=== PATIENT | female | born 1995 | race Caucasian/White ===

== ENCOUNTER → 2018-03-25 14:33 | Outpatient (CLI) | payer OTHER, MEDICAID, SELFPAY ==
[2018-03-25 15:31] LABS: Add Manual Diff / Slide Review NO; Basophils Percent Auto 0.5 % (0-2); Hematocrit 37.1 % (36-46); Hemoglobin 12.8 g/dL (12.0-16.0); Lymphocytes Percent Auto 17.5 % (25-40); Mean Corpuscular HGB Conc 34.5 % (30-36); Mean Corpuscular Hemoglobin 32.1 PG (26-34); Mean Corpuscular Volume 93.2 fL (80-100); Monocytes Percent Auto 5.8 % (3-14); Neutrophils Absolute Auto 7700 /uL (3000-5900); Neutrophils Percent Auto 75.2 % (50-75); Platelet Count 245 X10^3/uL (150-400); Red Blood Cell Count 3.98 X10^6/uL (4.0-5.2); Red Cell Distribution Width 13.2 % (11.6-14.8); White Blood Cell Count 10.2 X10^3/uL (4.5-11.0)
== END ==
PROVIDERS: PCP Physician Assistant; Visit Provider Family Medicine
DX: Z34.83 Encounter for supervision of other normal pregnancy, third trimester (principal)
CPT/HCPCS: 36415; 85025; 86900; 86901

== ENCOUNTER → 2018-04-06 14:12 | Outpatient (CLI) | payer OTHER, MEDICAID, SELFPAY ==
--- NOTE | 2018-04-06 14:14 | DI.US.S_ITS ---
PROCEDURE: US OB FOLLOW UP INDICATIONS: FACIAL FEATURES OUTSIDE/PRIOR DATING DATA: Last menstrual period (LMP): Not available. LMP-based estimated date of delivery (ADRIANNE): Not available. First dating scan (date and location): This study. Estimated date of delivery (ADRIANNE) from first dating scan: 06/15/18, + or -2 weeks. TECHNIQUE: Real-time scanning was performed of the fetus, with image documentation. Endovaginal scanning: No COMPARISON: [facility], , OB COMPLETE 14WKS OR MORE, 01/25/2018, 13:16. FINDINGS: A single living intrauterine gestation is present. Presentation: Vertex. Placenta: Placental position is anterior, without previa. Amniotic fluid index: 13.8 cm, normal range is 5-24 cm. heart rate: 140 beats per minute. Maternal cervical canal: 4.0 cm long. Normal lower limit is 2.5 cm. Estimated gestational age from initial scan: 20 weeks 0 days Normal appearance of the face, profile and nose and lips.. IMPRESSION: Normal appearance of the face. Dictated by: Kj Aponte [facility] Interpreted: Michael Galindo MD on 04/06/2018 at 15:27 Approved by: Michael Galindo M.D. on 04/06/2018 at 21:40
== END ==
PROVIDERS: Family Provider Physician Assistant; PCP Physician Assistant; Visit Provider Family Medicine
DX: Z34.92 Encounter for supervision of normal pregnancy, unspecified, second trimester (principal); Z3A.20 20 weeks gestation of pregnancy
CPT/HCPCS: 76816

== ENCOUNTER → 2018-04-13 16:32 | Outpatient (CLI) | payer OTHER, MEDICAID, SELFPAY ==
[2018-04-13 20:01] LABS: GTT (PREG) 1 Hour PP 50gm Dose 107 mg/dL (76-139)
== END ==
PROVIDERS: Family Provider Physician Assistant; PCP Physician Assistant; Visit Provider Family Medicine
DX: Z34.83 Encounter for supervision of other normal pregnancy, third trimester (principal)
CPT/HCPCS: 36415; 82950

== ENCOUNTER → 2018-05-19 10:05 | Outpatient (CLI) | payer OTHER, MEDICAID, SELFPAY ==
[2018-05-20 14:14] LABS: Strep Grp B PCR POS for Grp B Strep
== END ==
PROVIDERS: Family Provider Physician Assistant; PCP Physician Assistant; Visit Provider Family Medicine
DX: Z3A.36 36 weeks gestation of pregnancy (principal)
CPT/HCPCS: 87653

== ENCOUNTER 2018-06-16 22:53 | Inpatient (IN) | payer OTHER, MEDICAID, SELFPAY ==
[2018-06-17] MEDS: PENICILLIN G POTASSIUM 5,000,000 UNIT in DEXTROSE 5% IN WATER 250 ML IV (00:35)
[2018-06-17] MEDS: LACTATED RINGERS 1,000 ML 100 ML IV ×2 (00:35→01:42)
[2018-06-17 00:42] LABS: Add Manual Diff / Slide Review NO; Basophils Percent Auto 0.5 % (0-2); Eosinophils Percent Auto 0.9 % (2-4); Hematocrit 38.9 % (36-46); Lymphocytes Percent Auto 11.8 % (25-40); Mean Corpuscular HGB Conc 33.5 % (30-36); Mean Corpuscular Hemoglobin 30.7 PG (26-34); Mean Corpuscular Volume 91.7 fL (80-100); Monocytes Percent Auto 5.1 % (3-14); Neutrophils Absolute Auto 11000 /uL (3000-5900); Neutrophils Percent Auto 81.7 % (50-75); Platelet Count 246 X10^3/uL (150-400); Red Blood Cell Count 4.24 X10^6/uL (4.0-5.2); Red Cell Distribution Width 13.8 % (11.6-14.8); White Blood Cell Count 13.4 X10^3/uL (4.5-11.0)
[2018-06-17 02:12] VITALS: BP 122/77
[2018-06-17] MEDS: PENICILLIN G POTASSIUM 3,000,000 UNIT/50 ML FROZ.PIGGY 100 UNIT IV (04:56)
--- NOTE | 2018-06-17 05:50 | PM.OBHP.1 ---
OB HPI Date/Time Date of admission: 06/17/18 Date Patient Seen: 06/17/18 Time Patient Seen: 05:00 History of Present Illness Chief complaint: OBSERVATION OF LABOR : 2 Para: 1 Estimated Date of Delivery: 06/16/18 Estimated Gestational Age (weeks): 40w1d Narrative: Maricel TREJO is a 22 year old at 40w1d who presented in active labor. She reports having painful contractions starting at 7am on 06/16, increasing in frequency and intensity throughout the day. Now feeling them every 5 minutes. No LOF, significant vaginal bleeding. Feeling baby move regularly. History of Present care: good care Dating criteria: based on 1st trimester US only Ultrasounds: normal mid trimester US Obstetrical complications: none Medical complications: none Preadmission Labs Blood type: A (-) negative -: Antibody screen: negative, GBS status: positive, HBsAG: negative and HIV: negative -: Chlamydia screen: not detected and Gonorrhea screen: not detected -: Rubella: immune HCT: 40 1 hr GTT: 107 Prior (ies) History: 04/08/16 - at 39wks, [id number] Evaluation Evaluation Baseline heart rate: 130 Variability: Moderate (11-25) monitor accelerations: Present monitor decelerations: Absent Contraction Frequency (minutes): 3 Uterine Contraction Intensity: Strong/Firm Category of Tracing: I Cervical dilation (cm): 10 Cervical effacement (%): 100 station: +2 Laboratory results: Laboratory Tests 06/17/18 06/17/18 00:35 00:35 WBC 13.4 H RBC 4.24 Hgb 13.0 Hct 38.9 MCV 91.7 MCH 30.7 MCHC 33.5 RDW 13.8 Plt Count 246 Neut % (Auto) 81.7 H Lymph % (Auto) 11.8 L [place] % (Auto) 5.1 Eos % (Auto) 0.9 L Baso % (Auto) 0.5 Neut # (Auto) 24754 H Blood Type A Negative Antibody Screen Negative PFSH Family History Father Heart disease Social History Smoking Status: Never smoker Meds Home Medications Medication Instructions Recorded Confirmed Type No Known Home Medications 06/17/18 06/17/18 History Allergies Allergy/AdvReac Type Severity Reaction Status Date / Time No Known Drug Allergies Allergy Verified 06/17/18 00:56 Review of Systems Review of Systems All systems reviewed & are unremarkable except as noted in HPI and below Exam Vital Signs (past 8 hours): - 06/17/18 02:12 Blood Pressure 122/77 H Const General: cooperative, healthy appearing, comfortable and well developed Nutritional Appearance: average body habitus Resp Auscultation: clear to auscultation bilaterally Cardio Rate: regular rate Rhythm: regular rhythm Heart Sounds: no murmurs GI Inspection: non-distended Palpation: soft and No tender Auscultation: normal bowel sounds Objective Labs Result Diagrams: 06/17/18 00:35 Labs: Laboratory Results - last 24 hr 06/17/18 06/17/18 00:35 00:35 WBC 13.4 H RBC 4.24 Hgb 13.0 Hct 38.9 MCV 91.7 MCH 30.7 MCHC 33.5 RDW 13.8 Plt Count 246 Neut % (Auto) 81.7 H Lymph % (Auto) 11.8 L [place] % (Auto) 5.1 Eos % (Auto) 0.9 L Baso % (Auto) 0.5 Neut # (Auto) 41676 H Blood Type A Negative Antibody Screen Negative Assessment and Plan (1) Active labor at term: Current visit: Yes Status: Acute (2) 40 weeks gestation of : Current visit: Yes Status: Acute 22yo at 40w1d presented in active labor. Uncomplicated . GBS positive, Rh negative. - Expectant management, anticipate - GBS positive, already received 2 doses penicillin prior to my arrival, continue prophylaxis - Epidural for pain control - FHT reassuring - Rh negative, send cord blood after delivery
--- NOTE | 2018-06-17 05:56 | P.HPOB_ITS ---
OB HPI Date/Time Date of admission: 06/17/18 Date Patient Seen: 06/17/18 Time Patient Seen: 05:00 History of Present Illness Chief complaint: OBSERVATION OF LABOR : 2 Para: 1 Estimated Date of Delivery: 06/16/18 Estimated Gestational Age (weeks): 40w1d Narrative: Maricel TREJO is a 22 year old at 40w1d who presented in active labor. She reports having painful contractions starting at 7am on 06/16, increasing in frequency and intensity throughout the day. Now feeling them every 5 minutes. No LOF, significant vaginal bleeding. Feeling baby move regularly. History of Present care: good care Dating criteria: based on 1st trimester US only Ultrasounds: normal mid trimester US Obstetrical complications: none Medical complications: none Preadmission Labs Blood type: A (-) negative -: Antibody screen: negative, GBS status: positive, HBsAG: negative and HIV: negative -: Chlamydia screen: not detected and Gonorrhea screen: not detected -: Rubella: immune HCT: 40 1 hr GTT: 107 Prior (ies) History: 04/08/16 - at 39wks, [id number] Evaluation Evaluation Baseline heart rate: 130 Variability: Moderate (11-25) monitor accelerations: Present monitor decelerations: Absent Contraction Frequency (minutes): 3 Uterine Contraction Intensity: Strong/Firm Category of Tracing: I Cervical dilation (cm): 10 Cervical effacement (%): 100 station: +2 Laboratory results: Laboratory Tests 06/17/18 06/17/18 00:35 00:35 WBC 13.4 H RBC 4.24 Hgb 13.0 Hct 38.9 MCV 91.7 MCH 30.7 MCHC 33.5 RDW 13.8 Plt Count 246 Neut % (Auto) 81.7 H Lymph % (Auto) 11.8 L [place] % (Auto) 5.1 Eos % (Auto) 0.9 L Baso % (Auto) 0.5 Neut # (Auto) 37691 H Blood Type A Negative Antibody Screen Negative PFSH Family History Father Heart disease Social History Smoking Status: Never smoker Meds Home Medications Medication Instructions Recorded Confirmed Type No Known Home Medications 06/17/18 06/17/18 History Allergies Allergy/AdvReac Type Severity Reaction Status Date / Time No Known Drug Allergies Allergy Verified 06/17/18 00:56 Review of Systems Review of Systems All systems reviewed & are unremarkable except as noted in HPI and below Exam Vital Signs (past 8 hours): - 06/17/18 02:12 Blood Pressure 122/77 H Const General: cooperative, healthy appearing, comfortable and well developed Nutritional Appearance: average body habitus Resp Auscultation: clear to auscultation bilaterally Cardio Rate: regular rate Rhythm: regular rhythm Heart Sounds: no murmurs GI Inspection: non-distended Palpation: soft and No tender Auscultation: normal bowel sounds Objective Labs Result Diagrams: 06/17/18 00:35 Labs: Laboratory Results - last 24 hr 06/17/18 06/17/18 00:35 00:35 WBC 13.4 H RBC 4.24 Hgb 13.0 Hct 38.9 MCV 91.7 MCH 30.7 MCHC 33.5 RDW 13.8 Plt Count 246 Neut % (Auto) 81.7 H Lymph % (Auto) 11.8 L [place] % (Auto) 5.1 Eos % (Auto) 0.9 L Baso % (Auto) 0.5 Neut # (Auto) 63859 H Blood Type A Negative Antibody Screen Negative Assessment and Plan (1) Active labor at term: Current visit: Yes Status: Acute (2) 40 weeks gestation of : Current visit: Yes Status: Acute 22yo at 40w1d presented in active labor. Uncomplicated . GBS positive, Rh negative. - Expectant management, anticipate - GBS positive, already received 2 doses penicillin prior to my arrival, continue prophylaxis - Epidural for pain control - FHT reassuring - Rh negative, send cord blood after delivery
--- NOTE | 2018-06-17 07:10 | P.PCNOB_ITS ---
Delivery date: 06/17/18 Intrapartal events: None Induction method: none Delivery monitor: external FHT Route of delivery: Laceration description: None Estimated blood loss (mL): 150 Anesthesia type: Epidural Complications: None Narrative: PROCEDURE: at 40w1d presented in active labor and was admitted to Labor and Delivery. The patient progressed through the 1st stage over 18 hours. Pain was controlled with an epidural. The patient progressed through the 2nd stage over 2 hours and delivered a viable female infant with APGARs 9/9 at 6:42 via . The perineum and vagina were inspected with no lacerations. PREPROCEDURE DIAGNOSIS: Intrauterine at 40w1d GBS positive RH negative POSTPROCEDURE DIAGNOSIS: Intrauterine at 40w1d, delivered Same as preprocedure GBS positive with adequate prophylaxis PROCEDURE: Spontaneous vaginal delivery ROM APPEARANCE: Clear BABY A DELIVERY TIME: 6:42 BABY A OUTCOME: Viable BABY A WEIGHT: Pending at the time of this note BABY A CORD GASES OBTAINED: No PLACENTA DELIVERY TIME: 6:47 PLACENTA APPEARANCE: Intact [facility] [place] Baby 1: gender: Female Presentation: vertex position: Right Occiput Anterior Placenta delivery description: Spontaneous cord vessel description: 3 Vessels Plan for aftercare: Normal care Send cord blood for Rh status
[2018-06-17] MEDS: IBUPROFEN 600 MG TABLET PO ×2 (08:20→14:47)
[2018-06-17] MEDS: OXYCODONE/ACETAMINOPHEN 5/325 TABLET 1 TAB PO ×2 (12:48→20:05)
--- NOTE | 2018-06-17 19:40 | PM.OBDS.1 ---
Discharge Providers Date of admission: 06/16/18 22:53 Primary care physician: Mel Arita PA-C Consults: 06/17/18 08:23 Consult to Study Abroad Coordinator Routine Comment: 06/17/18 09:27 Consult to Vice Provost Routine Comment: Discharge provider: Mikayla Panda MD Summary Date Patient Seen: 06/17/18 Time Patient Seen: 17:00 Hospital Course: The pt was admitted in active labor. She received an epidural for pain control. She had SROM with production of clear fluid. She received adequate GBS prophylaxis with penicillin. She progressed to complete and had an uncomplicated at 6:42 on 06/17/18. There were no lacerations. , there were no complications. Due to childcare issues for her 2yo son, she was discharged home after only 12hrs. At the time of discharge, she was voiding, passing flatus, and ambulating without difficulty. Her lochia was decreasing appropriately. She was with good latch. Her pain was adequately controlled. She is uncertain regarding contraception. Peripartum Data Infant Delivery Method: Natural Vaginal Laceration description: None Episiotomy description: None Procedures: Spontaneous vaginal delivery complications: none [place] 1: Gender: Female Disposition of : home Discharge Diagnosis (1) Active labor at term: Status: Acute (2) 40 weeks gestation of : Status: Acute (3) (spontaneous vaginal delivery): Status: Acute Status at Discharge Functional status at discharge: independent ambulation Overall status at discharge: patient is progressing back to baseline Time Spent with Patient Total time spent providing and/or coordinating discharge services: Greater than 30 minutes Specific discharge activities: No intercourse for 6 weeks Objective Labs Result Diagrams: 06/17/18 00:35 Labs: Laboratory Results - last 24 hr 06/17/18 06/17/18 00:35 00:35 WBC 13.4 H RBC 4.24 Hgb 13.0 Hct 38.9 MCV 91.7 MCH 30.7 MCHC 33.5 RDW 13.8 Plt Count 246 Neut % (Auto) 81.7 H Lymph % (Auto) 11.8 L [place] % (Auto) 5.1 Eos % (Auto) 0.9 L Baso % (Auto) 0.5 Neut # (Auto) 75790 H Blood Type A Negative Antibody Screen Negative Discharge Plan Discharge Plan Patient Disposition: Home, Self-Care Discharge Med Rec/Prescriptions Prescriptions: New acetaminophen 325 mg Tablet 650 mg PO Q6HR PRN (Reason: Pain, Mild (1-3)) Qty: 30 RF: 0 benzocaine-menthol [Dermoplast (with menthol)] 20-0.5 % Aerosol 1 spray Topical Q1HR PRN (Reason: perineal pain) Qty: 15 RF: 0 ibuprofen 600 mg Tablet 600 mg PO Q6HR PRN (Reason: Pain, Mild (1-3)) Qty: 30 RF: 0 docusate sodium 250 mg Capsule 250 mg PO DAILY Qty: 30 RF: 0 lanolin [[id number]] Cream 1 applic Topical PRN PRN (Reason: Tenderness) Qty: 15 RF: 0 [id number] [Prenatabs Rx] 29 mg iron- 1 mg Tablet 1 tab PO DAILY Qty: 30 RF: 0 No Action No Known Home Medications RF: 0 Follow up/Referrals: Mikayla Panda MD [Physician] - 6 Weeks Provider Discharge Instructions Diet: Regular Activity: No intercourse for 6 weeks Skin/Wound/Dressing Care Report to your healthcare provider any signs of infection, such as:: chills, fever, increased pain and unusual drainage Visit Report/Discharge Packet Instructions: DI for Labor and Delivery, Vaginal Discharge Data Primary Care Provider: Mel Arita Attending Provider: Mikayla Panda Admit Date/Time: 06/16/18 22:53
--- NOTE | 2018-06-17 19:44 | P.DS_ITS ---
Discharge Providers Date of admission: 06/16/18 22:53 Primary care physician: Mel Arita PA-C Consults: 06/17/18 08:23 Consult to Endless Belt Finisher Routine Comment: 06/17/18 09:27 Consult to Master Control Supervisor Routine Comment: Discharge provider: Mikayla Panda MD Summary Date Patient Seen: 06/17/18 Time Patient Seen: 17:00 Hospital Course: The pt was admitted in active labor. She received an epidural for pain control. She had SROM with production of clear fluid. She received adequate GBS prophylaxis with penicillin. She progressed to complete and had an uncomplicated at 6:42 on 06/17/18. There were no lacerations. , there were no complications. Due to childcare issues for her 2yo son, she was discharged home after only 12hrs. At the time of discharge, she was voiding, passing flatus, and ambulating without difficulty. Her lochia was decreasing appropriately. She was with good latch. Her pain was adequately controlled. She is uncertain regarding contraception. Peripartum Data Infant Delivery Method: Natural Vaginal Laceration description: None Episiotomy description: None Procedures: Spontaneous vaginal delivery complications: none [place] 1: Gender: Female Disposition of : home Discharge Diagnosis (1) Active labor at term: Status: Acute (2) 40 weeks gestation of : Status: Acute (3) (spontaneous vaginal delivery): Status: Acute Status at Discharge Functional status at discharge: independent ambulation Overall status at discharge: patient is progressing back to baseline Time Spent with Patient Total time spent providing and/or coordinating discharge services: Greater than 30 minutes Specific discharge activities: No intercourse for 6 weeks Objective Labs Result Diagrams: 06/17/18 00:35 Labs: Laboratory Results - last 24 hr 06/17/18 06/17/18 00:35 00:35 WBC 13.4 H RBC 4.24 Hgb 13.0 Hct 38.9 MCV 91.7 MCH 30.7 MCHC 33.5 RDW 13.8 Plt Count 246 Neut % (Auto) 81.7 H Lymph % (Auto) 11.8 L [place] % (Auto) 5.1 Eos % (Auto) 0.9 L Baso % (Auto) 0.5 Neut # (Auto) 22071 H Blood Type A Negative Antibody Screen Negative Discharge Plan Discharge Plan Patient Disposition: Home, Self-Care Discharge Med Rec/Prescriptions Prescriptions: New acetaminophen 325 mg Tablet 650 mg PO Q6HR PRN (Reason: Pain, Mild (1-3)) Qty: 30 RF: 0 benzocaine-menthol [Dermoplast (with menthol)] 20-0.5 % Aerosol 1 spray Topical Q1HR PRN (Reason: perineal pain) Qty: 15 RF: 0 ibuprofen 600 mg Tablet 600 mg PO Q6HR PRN (Reason: Pain, Mild (1-3)) Qty: 30 RF: 0 docusate sodium 250 mg Capsule 250 mg PO DAILY Qty: 30 RF: 0 lanolin [[id number]] Cream 1 applic Topical PRN PRN (Reason: Tenderness) Qty: 15 RF: 0 [id number] [Prenatabs Rx] 29 mg iron- 1 mg Tablet 1 tab PO DAILY Qty: 30 RF: 0 No Action No Known Home Medications RF: 0 Follow up/Referrals: Mikayla Panda MD [Physician] - 6 Weeks Provider Discharge Instructions Diet: Regular Activity: No intercourse for 6 weeks Skin/Wound/Dressing Care Report to your healthcare provider any signs of infection, such as:: chills, fever, increased pain and unusual drainage Visit Report/Discharge Packet Instructions: DI for Labor and Delivery, Vaginal Discharge Data Primary Care Provider: Mel Arita Attending Provider: Mikayla Panda Admit Date/Time: 06/16/18 22:53
[2018-06-17 20:16] VITALS: BP 108/72; PULSE 76; RESP 18; TEMP 36.8
--- NOTE | 2018-06-18 15:04 | CM.SWNOTE ---
Social Work Consult Note: This LINE STAKER requested to assess mom d/t concerns for baby's safety by Dr Panda. Baby girl [place] born the morning of 06/17/18, healthy, normal vaginal delivery. No tox screen done on mom, no suspicion of drug use. Per CHRIS Arellano: there was concern that mom brought her 2 yo while actively in labor, Dad of 2 yo and also FOB baby girl [place] sporadically in the center, he will disappear for hours, where-abouts unknown per mom Maricel. Maricel teary today per RN, she is breast feeding and bonding appropriately with baby girl. Met w/mom, baby girl asleep in her arms. berlin Connelly and 2 yo Marvin moved to [place] in February, from [place] (near [place]). Maricel sates neither she or berlin are working but have been living off of their savings. Mom states her mom is heading to [place] to help w/ 2 yo. (CHRIS Arellano had told this LINE STAKER that Maricel is reporting her mom had mental health issues). 2 yo Marvin is currently in the care of Maricel's 16 yo sister. Mom Maricel eager to leave the hospital; when asked why, she states because it's a hospital and I feel trapped. 2 yobrianna Wong is not in daycare, mom has been home with him full-time, berlin gets sporadic construction work. Mom denies h/o or current SI, PPSD, denies h/o or current abuse. She states she feels safe at home and has what she needs for food, clothing, correction. Mom denies D/A use. Holly Connelly [facility] used [facility] but unsure she wants this resource. Mom is quiet, makes good eye contact, a little teary, no track irwin, acne, or other notable s/sx of drug use or s/sx of w/d. Maricel is upset that she is alone right now and would like to know where her fiterese is? He was supposed to be back by now with our son. Mom expects to take baby home, has car seat and plans to continue to breast feed. She states I need to get work as soon as possible and states she has been looking into daycare for a toddler and baby. This LINE STAKER followed up w/CHRIS Arellano and Director [place]; explained mom is likely not reporting any h/o or current D/A use or social stressors, denies any problems or need for resources. This LINE STAKER can not make any concrete determination re: risk to baby, no evidence from the interview w/mom tells me baby will not be safe at home w/her . Mom seems appropriate when caring for baby and when talking about the care of her 2 yo. Placed call to CPS and spoke w/Jarod Jameson [phone], reviewed this LINE STAKER's assessment and requested information about mom's hx. Holly Connelly did have a prior investigation that was determined un-founded. According to Jarod, the report was based on mom's positive meth screen while and Dad's Heroin use. Jarod was appreciative of the call and needed to review w/his supervisor counseling and guidance to discuss how to respond. Jarod stated based on the investigation that was already completed, along with this LINE STAKER's input, baby was likely safe to leave w/mom...although, if the physician felt the baby should be placed on a medical hold then CPS would need to respond sooner. Spoke w/CHRIS Arellano and explained if Dr Panda did not want baby to leave w/mom until CPS completed a hospital visit, the baby would need to be placed on a medical hold. Checked in with CHRIS Arellano today; Holly Connelly left yesterday w/baby and was scheduled to bring baby girl back in this morning to complete the 24 hour tests since mom was GBS +. This LINE STAKER suggested that CHRIS antony to see if holly Connelly made it to her appt w/baby girl at [facility]. If not, CPS should be notified. AFIA Kwan
== END 2018-06-17 21:10 | disposition home or self-care (01) | DRG 560 ==
PROVIDERS: Admitting Provider Family Medicine; Family Provider Physician Assistant; PCP Physician Assistant; Visit Provider Family Medicine
DX: O99.824 Streptococcus B carrier state complicating childbirth (principal); Z3A.40 40 weeks gestation of pregnancy; Z37.0 Single live birth
CPT/HCPCS: 01967; 59050; 59409; 85025; 86850; 86900; 86901; G0379; J2540

== ENCOUNTER 2018-09-05 13:30 | Emergency (ER) | payer OTHER, MEDICAID, SELFPAY ==
[2018-09-05 13:41] VITALS: BP 129/67; PULSE 119; RESP 22; TEMP 36.7; O2SAT 100; BMI 20.1
[2018-09-05 14:23] VITALS: BP 133/93; PULSE 115; RESP 22; O2SAT 99
== END 2018-09-05 14:33 | disposition left against medical advice (07) ==
LOC: ED 13:34
PROVIDERS: PCP Physician Assistant
DX: R11.2 Nausea with vomiting, unspecified (principal)
CPT/HCPCS: 99281; 99282

== ENCOUNTER 2018-09-06 07:40 | Emergency (ER) | payer OTHER, MEDICAID, SELFPAY ==
[2018-09-06 07:48] VITALS: BP 119/86; PULSE 104; RESP 20; TEMP 36.4; O2SAT 100; BMI 20.1
--- NOTE | 2018-09-06 07:48 | ED.GENADULT ---
HPI - General Adult General Chief complaint: Toxicology Problem Stated complaint: opiate withdrawl Time Seen by Provider: 09/06/18 07:47 Source: patient Mode of arrival: ambulatory Limitations: no limitations History of Present Illness HPI narrative: 22-year-old otherwise healthy female here for evaluation of wanting help for opioid withdrawal. 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 She states that her last use was yesterday at 4 o'clock in the afternoon. She did come to the emergency department last evening but after waiting for period of time in the waiting room she left. She denies any other ingestions. States that she has been nauseous. States she did not sleep last night. Patient states she has been looking on the Internet and would like medications to help her withdrawal. Related Data Home Medications Medication Instructions Recorded Confirmed No Known Home Medications 06/17/18 06/17/18 Previous Rx's Medication Instructions Recorded acetaminophen 650 mg PO Q6HR PRN #30 tab 06/17/18 benzocaine-menthol [Dermoplast 1 spray TOPICAL Q1HR PRN #15 g 06/17/18 (with menthol)] docusate sodium 250 mg PO DAILY #30 cap 06/17/18 ibuprofen 600 mg PO Q6HR PRN #30 tab 06/17/18 lanolin [[id number]-J-[id number]] 1 applic TOPICAL PRN PRN #15 gram 06/17/18 vit,[id number] 1 tab PO DAILY #30 tab 06/17/18 [Prenatabs Rx] Allergies Allergy/AdvReac Type Severity Reaction Status Date / Time No Known Drug Allergies Allergy Verified 09/06/18 07:52 Review of Systems Constitutional Denies headache(s), Denies night sweats and Reports poor appetite ENT Ears, Nose, Mouth, and Throat: Denies headache(s) Cardiovascular Denies chest pain and Denies dyspnea Respiratory Denies dyspnea Gastrointestinal Gastrointestinal: Denies change in bowel habits, Reports nausea and Reports vomiting Musculoskeletal Reports myalgias and Reports arthralgias Integumentary/Breasts Reports pruritus, Denies lesions and Denies rash Neurologic Denies headache(s) Psychiatric Reports anxiety [facility] Medical History Healthy adult (Acute) Surgical History No pertinent past surgical history (Acute) Family History Father Heart disease Social History Smoking Status: Former smoker Exam Initial Vital Signs Initial Vital Signs: Vital Signs Temperature 97.6 F 09/06/18 07:48 Pulse Rate 104 H 09/06/18 07:48 Respiratory Rate 20 09/06/18 07:48 Blood Pressure 119/86 09/06/18 07:48 Pulse Oximetry 100 09/06/18 07:48 Const General: cooperative, well developed, well groomed, No acute distress and anxious Orientation: alert and awake Resp Effort & Inspection: normal respiratory effort Auscultation: clear to auscultation bilaterally Cardio Rate: tachycardic Rhythm: regular rhythm Pulses: radial pulses present GI Inspection: non-distended Skin Other: Bruises on bilateral forearms which patient states is from shooting up Neuro General: alert, awake and oriented x3 Extrem General: normal to inspection and capillary refill normal Psych Appearance: grossly normal and well kempt Speech and Movement: agitated Mood: anxious mood Affect: anxious affect and irritable affect Course Orders Ordered: ED Orders 09/06/18 07:56 Consult to [employer] Minist[employer] Director Stat Vital Signs - 8 hr 09/06/18 07:48 Temperature 97.6 F Pulse Rate 104 H Respiratory Rate 20 Blood Pressure 119/86 Pulse Oximetry 100 Medical Decision Making MDM Narrative Medical decision making narrative: Patient without SI or HI. I informed the patient that here in the emergency department we do not give out medications such as methadone or Suboxone. I offer to help the patient find inpatient rehab however she states that she does not want to be admitted to the hospital because she has kids at home. I informed her that we could give her medication for her nausea a social work consult was placed. Patient came out of the room stating that she did not want to stay for the social work consult. I was trying to find her pamphlet information with regard to help with drug abuse however she states that she did not want to stay. I offered her a prescription for nausea medication but she did not want to stay for that. I offered to call her primary care doctor to see about setting up a follow-up appointment but she did not want to stay for that as well. Patient was alert and oriented x3 and in my opinion had the capacity to make decision was clinically sober. She did not want to stay for any discharge paperwork. She left the department Discharge Plan Departure Patient Disposition: Left Against Medical Advice Clinical Impression: Drug abuse Instructions: DI for Drug Abuse and Drug Addiction Activity Restrictions/Additional Instructions: I recommend that you contact your primary care doctor for a follow-up. You can return to the emergency department at any point if you feel like you need admitted to the hospital. Prescriptions: No Action No Known Home Medications RF: 0 acetaminophen 325 mg Tablet 650 mg PO Q6HR PRN (Reason: Pain, Mild (1-3)) Qty: 30 RF: 0 benzocaine-menthol [Dermoplast (with menthol)] 20-0.5 % Aerosol 1 spray Topical Q1HR PRN (Reason: perineal pain) Qty: 15 RF: 0 ibuprofen 600 mg Tablet 600 mg PO Q6HR PRN (Reason: Pain, Mild (1-3)) Qty: 30 RF: 0 docusate sodium 250 mg Capsule 250 mg PO DAILY Qty: 30 RF: 0 lanolin [[id number]-[id number]] Cream 1 applic Topical PRN PRN (Reason: Tenderness) Qty: 15 RF: 0 vit,[id number] [Prenatabs Rx] 29 mg iron- 1 mg Tablet 1 tab PO DAILY Qty: 30 RF: 0 Stand Alone Forms: Against Medical Advice
--- NOTE | 2018-09-06 08:31 | PC.NURSE ---
Pt restless during triage, reports skins feel like crawling. Pt was here yesterday with same c/o but did not want to wait and left ER.
== END 2018-09-06 08:20 | disposition left against medical advice (07) ==
PROVIDERS: Emergency Provider Emergency Medicine; PCP Physician Assistant
DX: F11.23 Opioid dependence with withdrawal (principal)
CPT/HCPCS: 99282

== ENCOUNTER 2018-10-04 10:14 | Emergency (ER) | payer OTHER, MEDICAID, SELFPAY ==
[2018-10-04 10:42] VITALS: BP 106/71; PULSE 98; RESP 14; TEMP 36.7; O2SAT 98
--- NOTE | 2018-10-04 10:48 | PC.NURSE ---
per aunt on the phone, she believes pt has been doing drugs, and possibly giving her children somthing to make them docile.
[2018-10-04 11:36] LABS: Urine Amphetamines Negative (Negative); Urine Barbiturates Negative (Negative); Urine Cocaine Negative (Negative); Urine MDMA Negative (Negative); Urine Methamphetamines Negative (Negative); Urine Morphine/Opi cutoff 2000 Negative (Negative); Urine Phencyclidine Negative (Negative); Urine Tetrahydrocannabinol Positive (Negative)
[2018-10-04 11:37] LABS: Urine Benzodiazepines Negative (Negative); Urine Methadone Negative (Negative); Urine Oxycodone Negative (Negative); Urine Tricyclic Antidepressant Positive (Negative)
--- NOTE | 2018-10-04 11:51 | PC.NURSE ---
Pt very anxious, verbally reassured. Asking how long visit will take and why she has not been seen by a provider yet. Explained triage system and that we had to take care of the sickest first. Labs are being processed and she can take po fluids, stable vital signs. Denies new pain / sob/ discomfort.
[2018-10-04 11:52] VITALS: BP 110/70; PULSE 90; RESP 14
--- NOTE | 2018-10-04 12:04 | PC.NURSE ---
Pt drinking brown liqud in pickle jar. When asked what it was she stated it was a blend of vegtables like cucumbers and such and it was good. Asked patient to not eat or drink until Provider could see her. Pt stated understanding.
[2018-10-04 12:13] LABS: Add Manual Diff / Slide Review NO; Basophils Percent Auto 0.7 % (0-2); Eosinophils Percent Auto 0.5 % (2-4); Hematocrit 39.6 % (36-46); Hemoglobin 13.5 g/dL (12.0-16.0); Mean Corpuscular HGB Conc 34.1 % (30-36); Mean Corpuscular Hemoglobin 30.7 PG (26-34); Monocytes Percent Auto 5.4 % (3-14); Neutrophils Absolute Auto 5600 /uL (3000-5900); Neutrophils Percent Auto 75.4 % (50-75); Platelet Count 301 X10^3/uL (150-400); Red Cell Distribution Width 14.1 % (11.6-14.8); White Blood Cell Count 7.5 X10^3/uL (4.5-11.0)
[2018-10-04 12:17] LABS: INR 1.2 (0.9-1.3); Prothrombin Time 12.6 SECONDS (10.1-12.7)
[2018-10-04 12:20] LABS: PTT Partial Thromboplastin Tim 36 SECONDS (26.4-36.2)
[2018-10-04 12:21] LABS: Alanine Aminotransferase 23 IU/L (9-52); Albumin 4.9 g/dL (3.5-5.0); Albumin Globulin Ratio 1.5 (1.0-2.8); Alkaline Phosphatase 59 U/L (38-126); Aspartate Aminotransferase 20 IU/L (14-36); BUN Creatinine Ratio 16.7 (6-22); Bilirubin Total 0.8 mg/dL (0.2-1.3); Blood Urea Nitrogen 10 mg/dL (7-17); Calcium 9.9 mg/dL (8.4-10.2); Carbon Dioxide 26 mmol/L (22-32); Chloride 102 mmol/L (98-107); Estimated Glomerular Filt Rate > 60.0 mL/min (>60); Globulin 3.3 g/dL (1.7-4.1); Glucose 100 mg/dL (70-100); HEMOLYSIS < 15 (0-50); Lipase 64 U/L (23-300); Potassium 4.9 mmol/L (3.4-5.1); Sodium 142 mmol/L (137-145); Total Protein 8.2 g/dL (6.3-8.2)
--- NOTE | 2018-10-04 13:35 | ED_ITS ---
HPI - Nausea/Vomiting/Diarrhea <Radha Castro PA-C - Last Filed: 10/04/18 21:41> General Chief complaint: Nausea/Vomiting/Diarrhea Stated complaint: throwing up,nauseous,loss of appetite Time Seen by Provider: 10/04/18 13:34 Source: patient Mode of arrival: ambulatory Limitations: no limitations History of Present Illness HPI Narrative: This 22-year-old patient comes in due to onset of diarrhea, 3-5 episodes since early this morning and 1 episode of vomiting at 3:00 a.m.. She states that she feels ?super off?, with generalized weakness. She states her stools were discolored, but no blood in the stools. She denies any fever, chills, sweats. She denies any abdominal pain. She denies any new urinary symptoms. She did have some exposure to sick family members prior but not sure whether any GI symptoms. She states that she is feeling significantly improved after drinking a large amount of juice while she was waiting. She states that she previously used IV heroin but is clean now for several weeks, worried about exposures such as hepatitis and STDs. Related Data Home Medications Medication Instructions Recorded Confirmed trazodone 100 mg PO BEDTIME PRN 10/04/18 10/04/18 vitamin B complex 1 cap PO DAILY 10/04/18 10/04/18 Allergies Allergy/AdvReac Type Severity Reaction Status Date / Time No Known Drug Allergies Allergy Verified 09/06/18 07:52 Review of Systems <Radha Castro PA-C - Last Filed: 10/04/18 21:41> Review of Systems All systems reviewed & are unremarkable except as noted in HPI and below Exam <Radha Castro PA-C - Last Filed: 10/04/18 21:41> Narrative Exam Narrative: GENERAL APPEARANCE: Patient sitting comfortably, in no distress. HEENT: PERRL, EOMI, no scleral icterus NECK: Supple LUNGS: Clear to auscultation bilaterally. HEART: Rate and rhythm regular, normal S1 and S2, no S3 or S4. ABDOMEN: Soft, nontender, nondistended, bowel sounds present x 4 quadrants, no masses palpable, no hepatosplenomegaly. EXTREMITIES: No edema, no cyanosis DERMATOLOGIC: No jaundice or exanthem NEUROLOGIC: Alert and oriented with normal speech and coordination Initial Vital Signs Initial Vital Signs: Vital Signs Temperature 98.1 F 10/04/18 10:42 Pulse Rate 98 H 10/04/18 10:42 Respiratory Rate 14 10/04/18 10:42 Blood Pressure 106/71 10/04/18 10:42 Pulse Oximetry 98 10/04/18 10:42 <Tiffany López DO - Last Filed: 10/05/18 08:48> Initial Vital Signs Initial Vital Signs: Vital Signs Temperature 98.1 F 10/04/18 10:42 Pulse Rate 98 H 10/04/18 10:42 Respiratory Rate 14 10/04/18 10:42 Blood Pressure 106/71 10/04/18 10:42 Pulse Oximetry 98 10/04/18 10:42 Course <Radha Castro PA-C - Last Filed: 10/04/18 21:41> Orders Ordered: ED Orders 10/04/18 10:55 Urine Drug Screen, Rapid Stat 10/04/18 12:02 Complete Blood Count AUTO DIFF Stat Comprehensive Metabolic Panel Stat Lipase Stat Partial Thromboplastin Time Stat Prothrombin Time INR Stat Vital Signs - 8 hr 10/04/18 10:42 10/04/18 11:52 Temperature 98.1 F Pulse Rate 98 H 90 Respiratory Rate 14 14 Blood Pressure 106/71 Blood Pressure [Left Arm] 110/70 Pulse Oximetry 98 <Tiffany López DO - Last Filed: 10/05/18 08:48> Orders Ordered: ED Orders 10/04/18 10:55 Urine Drug Screen, Rapid Stat 10/04/18 12:02 Complete Blood Count AUTO DIFF Stat Comprehensive Metabolic Panel Stat Lipase Stat Partial Thromboplastin Time Stat Prothrombin Time INR Stat Vital Signs - 8 hr 10/04/18 10:42 10/04/18 11:52 Temperature 98.1 F Pulse Rate 98 H 90 Respiratory Rate 14 14 Blood Pressure 106/71 Blood Pressure [Left Arm] 110/70 Pulse Oximetry 98 MDM - Nausea/Vomiting/Diarrhea <Radha Castro PA-C - Last Filed: 10/04/18 21:41> Lab Data Attestation: I reviewed the patient's lab results. Result diagrams: 10/04/18 12:02 10/04/18 12:02 Lab Results 10/04/18 10/04/18 10/04/18 Range/Units 10:55 12:02 12:02 WBC 7.5 (4.5-11.0) X10^3/uL RBC 4.40 (4.0-5.2) X10^6/uL Hgb 13.5 (12.0-16.0) g/dL Hct 39.6 (36-46) % MCV 90.0 (80-100) fL MCH 30.7 (26-34) PG MCHC 34.1 (30-36) % RDW 14.1 (11.6-14.8) % Plt Count 301 (150-400) X10^3/uL Neut % (Auto) 75.4 H (50-75) % Lymph % (Auto) 18.0 L (25-40) % Grayson % (Auto) 5.4 (3-14) % Eos % (Auto) 0.5 L (2-4) % Baso % (Auto) 0.7 (0-2) % Neut # (Auto) 5600 (2918-6896) /uL PT 12.6 (10.1-12.7) SECONDS INR 1.2 (0.9-1.3) APTT 36 (26.4-36.2) SECONDS Sodium (137-145) mmol/L Potassium (3.4-5.1) mmol/L Chloride (98-107) mmol/L Carbon Dioxide (22-32) mmol/L BUN (7-17) mg/dL Creatinine (0.52-1.04) mg/dL Estimated GFR (>60) mL/min BUN/Creatinine Ratio (6-22) Glucose (70-100) mg/dL Calcium (8.4-10.2) mg/dL Total Bilirubin (0.2-1.3) mg/dL AST (14-36) IU/L ALT (9-52) IU/L Alkaline Phosphatase (38-126) U/L Total Protein (6.3-8.2) g/dL Albumin (3.5-5.0) g/dL Globulin (1.7-4.1) g/dL Albumin/Globulin Ratio (1.0-2.8) Lipase (23-300) U/L Urine Opiates Screen Negative (Negative) Ur Oxycodone Screen Negative (Negative) Urine Methadone Screen Negative (Negative) Ur Barbiturates Screen Negative (Negative) U Tricyclic Antidepress Positive H (Negative) Ur Phencyclidine Scrn Negative (Negative) Ur Amphetamines Screen Negative (Negative) U Methamphetamines Scrn Negative (Negative) Ur MDMA Scrn (Ecstasy) Negative (Negative) U Benzodiazepines Scrn Negative (Negative) Urine Cocaine Screen Negative (Negative) U Marijuana (THC) Screen Positive H (Negative) 10/04/18 Range/Units 12:02 WBC (4.5-11.0) X10^3/uL RBC (4.0-5.2) X10^6/uL Hgb (12.0-16.0) g/dL Hct (36-46) % MCV (80-100) fL MCH (26-34) PG MCHC (30-36) % RDW (11.6-14.8) % Plt Count (150-400) X10^3/uL Neut % (Auto) (50-75) % Lymph % (Auto) (25-40) % Grayson % (Auto) (3-14) % Eos % (Auto) (2-4) % Baso % (Auto) (0-2) % Neut # (Auto) (5369-3270) /uL PT (10.1-12.7) SECONDS INR (0.9-1.3) APTT (26.4-36.2) SECONDS Sodium 142 (137-145) mmol/L Potassium 4.9 (3.4-5.1) mmol/L Chloride 102 (98-107) mmol/L Carbon Dioxide 26 (22-32) mmol/L BUN 10 (7-17) mg/dL Creatinine 0.60 (0.52-1.04) mg/dL Estimated GFR > 60.0 (>60) mL/min BUN/Creatinine Ratio 16.7 (6-22) Glucose 100 (70-100) mg/dL Calcium 9.9 (8.4-10.2) mg/dL Total Bilirubin 0.8 (0.2-1.3) mg/dL AST 20 (14-36) IU/L ALT 23 (9-52) IU/L Alkaline Phosphatase 59 (38-126) U/L Total Protein 8.2 (6.3-8.2) g/dL Albumin 4.9 (3.5-5.0) g/dL Globulin 3.3 (1.7-4.1) g/dL Albumin/Globulin Ratio 1.5 (1.0-2.8) Lipase 64 (23-300) U/L Urine Opiates Screen (Negative) Ur Oxycodone Screen (Negative) Urine Methadone Screen (Negative) Ur Barbiturates Screen (Negative) U Tricyclic Antidepress (Negative) Ur Phencyclidine Scrn (Negative) Ur Amphetamines Screen (Negative) U Methamphetamines Scrn (Negative) Ur MDMA Scrn (Ecstasy) (Negative) U Benzodiazepines Scrn (Negative) Urine Cocaine Screen (Negative) U Marijuana (THC) Screen (Negative) Point of Care Testing Test Results Negative Urine Dip Bedside Urine Glucose Negative Bedside Urine Bilirubin - Negative Bedside Urine Ketone - Negative Urine Specific Lincoln 1.010 Bedside Urine Occult Blood - Negative Bedside Urine pH 6.0 Bedside Urine Protein - Negative Bedside Urine Urobilinogen - Negative Bedside Urine Nitrite - Negative Bedside Urine Leukocytes - Negative Esterase <Tiffany López, DO - Last Filed: 10/05/18 08:48> Lab Data Lab Results 10/04/18 10/04/18 10/04/18 Range/Units 10:55 12:02 12:02 WBC 7.5 (4.5-11.0) X10^3/uL RBC 4.40 (4.0-5.2) X10^6/uL Hgb 13.5 (12.0-16.0) g/dL Hct 39.6 (36-46) % MCV 90.0 (80-100) fL MCH 30.7 (26-34) PG MCHC 34.1 (30-36) % RDW 14.1 (11.6-14.8) % Plt Count 301 (150-400) X10^3/uL Neut % (Auto) 75.4 H (50-75) % Lymph % (Auto) 18.0 L (25-40) % Grayson % (Auto) 5.4 (3-14) % Eos % (Auto) 0.5 L (2-4) % Baso % (Auto) 0.7 (0-2) % Neut # (Auto) 5600 (2884-3335) /uL PT 12.6 (10.1-12.7) SECONDS INR 1.2 (0.9-1.3) APTT 36 (26.4-36.2) SECONDS Sodium (137-145) mmol/L Potassium (3.4-5.1) mmol/L Chloride (98-107) mmol/L Carbon Dioxide (22-32) mmol/L BUN (7-17) mg/dL Creatinine (0.52-1.04) mg/dL Estimated GFR (>60) mL/min BUN/Creatinine Ratio (6-22) Glucose (70-100) mg/dL Calcium (8.4-10.2) mg/dL Total Bilirubin (0.2-1.3) mg/dL AST (14-36) IU/L ALT (9-52) IU/L Alkaline Phosphatase (38-126) U/L Total Protein (6.3-8.2) g/dL Albumin (3.5-5.0) g/dL Globulin (1.7-4.1) g/dL Albumin/Globulin Ratio (1.0-2.8) Lipase (23-300) U/L Urine Opiates Screen Negative (Negative) Ur Oxycodone Screen Negative (Negative) Urine Methadone Screen Negative (Negative) Ur Barbiturates Screen Negative (Negative) U Tricyclic Antidepress Positive H (Negative) Ur Phencyclidine Scrn Negative (Negative) Ur Amphetamines Screen Negative (Negative) U Methamphetamines Scrn Negative (Negative) Ur MDMA Scrn (Ecstasy) Negative (Negative) U Benzodiazepines Scrn Negative (Negative) Urine Cocaine Screen Negative (Negative) U Marijuana (THC) Screen Positive H (Negative) 10/04/18 Range/Units 12:02 WBC (4.5-11.0) X10^3/uL RBC (4.0-5.2) X10^6/uL Hgb (12.0-16.0) g/dL Hct (36-46) % MCV (80-100) fL MCH (26-34) PG MCHC (30-36) % RDW (11.6-14.8) % Plt Count (150-400) X10^3/uL Neut % (Auto) (50-75) % Lymph % (Auto) (25-40) % Grayson % (Auto) (3-14) % Eos % (Auto) (2-4) % Baso % (Auto) (0-2) % Neut # (Auto) (6832-0936) /uL PT (10.1-12.7) SECONDS INR (0.9-1.3) APTT (26.4-36.2) SECONDS Sodium 142 (137-145) mmol/L Potassium 4.9 (3.4-5.1) mmol/L Chloride 102 (98-107) mmol/L Carbon Dioxide 26 (22-32) mmol/L BUN 10 (7-17) mg/dL Creatinine 0.60 (0.52-1.04) mg/dL Estimated GFR > 60.0 (>60) mL/min BUN/Creatinine Ratio 16.7 (6-22) Glucose 100 (70-100) mg/dL Calcium 9.9 (8.4-10.2) mg/dL Total Bilirubin 0.8 (0.2-1.3) mg/dL AST 20 (14-36) IU/L ALT 23 (9-52) IU/L Alkaline Phosphatase 59 (38-126) U/L Total Protein 8.2 (6.3-8.2) g/dL Albumin 4.9 (3.5-5.0) g/dL Globulin 3.3 (1.7-4.1) g/dL Albumin/Globulin Ratio 1.5 (1.0-2.8) Lipase 64 (23-300) U/L Urine Opiates Screen (Negative) Ur Oxycodone Screen (Negative) Urine Methadone Screen (Negative) Ur Barbiturates Screen (Negative) U Tricyclic Antidepress (Negative) Ur Phencyclidine Scrn (Negative) Ur Amphetamines Screen (Negative) U Methamphetamines Scrn (Negative) Ur MDMA Scrn (Ecstasy) (Negative) U Benzodiazepines Scrn (Negative) Urine Cocaine Screen (Negative) U Marijuana (THC) Screen (Negative) Point of Care Testing Test Results Negative Urine Dip Bedside Urine Glucose Negative Bedside Urine Bilirubin - Negative Bedside Urine Ketone - Negative Urine Specific [place] 1.010 Bedside Urine Occult Blood - Negative Bedside Urine pH 6.0 Bedside Urine Protein - Negative Bedside Urine Urobilinogen - Negative Bedside Urine Nitrite - Negative Bedside Urine Leukocytes - Negative Esterase Discharge Plan Departure Patient Disposition: Home Clinical Impression: Gastroenteritis Discharge Date/Time: 10/04/18 14:04 Interventions: ED Discharge Assessment Last Done: 10/04/18 14:04 Instructions: DI for Viral Gastroenteritis -- Adult Activity Restrictions/Additional Instructions: Please return as we talked about if you have acutely worsening symptoms, i.e. if you are unable to keep down any fluids, or if you have new symptoms such as high fever or pain. Otherwise, please drink plenty of clear fluids. Take over- the-counter Imodium to help with diarrhea, and you can use Benadryl to help with nausea and sleep as needed (do not drive as that could make you sleepy). You may also want to try that at night instead of trazodone since you think that may have upset her stomach. There were no problems found on your lab work today, however given your concern for exposure, please make an appointment to follow up with your PCP and talk about the other testing that you may want done in the next couple of months Prescriptions: No Action trazodone 100 mg Tablet 100 mg PO BEDTIME PRN (Reason: Insomnia) RF: 0 vitamin B complex Capsule 1 cap PO DAILY RF: 0 Referrals: Mel Arita PA-C [Primary Care Provider] - <Tiffany López DO - Last Filed: 10/05/18 08:48> Cosign ED Attending Ashature Attestation: I was immediately available in the department for consultation. Documentation has been reviewed. I agree with assessment and plan.
== END 2018-10-04 14:04 | disposition home or self-care (01) ==
PROVIDERS: Emergency Medicine; Emergency Provider Internal Medicine; PCP Physician Assistant
DX: K52.9 Noninfective gastroenteritis and colitis, unspecified (principal)
CPT/HCPCS: 36415; 80053; 80305; 81003; 81025; 83690; 85025; 85610; 85730; 99282; 99283